=== PATIENT | female | born 1965 | race Caucasian/White ===

== ENCOUNTER → 2020-04-24 09:48 | Outpatient (BNVA) | payer OTHER, SELFPAY | PROVIDERS: PCP Internal Medicine Nephrology; Referring Provider Internal Medicine Nephrology; Visit Provider Licensed Practical Nurse | DX: R29.898 Other symptoms and signs involving the musculoskeletal system (principal); M54.5 Low back pain | CPT/HCPCS: 99204 ==

== ENCOUNTER 2020-05-12 12:35 | Outpatient (CLI) | payer MEDICARE, SELFPAY ==
--- NOTE | 2020-05-12 13:10 | MR_ITS ---
WS: [id number] MRI LUMBAR SPINE NONCONTRAST HISTORY: M54.5 Low back pain COMPARISON: None available. TECHNIQUE: Sagittal and axial multisequence imaging is submitted. Mild thoracolumbar curvature. T9-10 on the LEFT is facet joint arthritis encroaching into the central canal. Normal lumbar alignment with no compression fractures or marrow edema. Very mild disc space narrowing and desiccation at L5-S1. Conus terminates normally at L1-2 disc level. L1-L2: Normal. L2-L3: Very mild ligamentum flavum disease and facet disease. No stenosis. L3-L4: Mild annular disc bulging without stenosis. L4-L5: Mild annular disc bulging with facet and ligamentum flavum hypertrophy. Slightly greater encro achment into the LEFT subarticular recess. Disc abuts the L5 nerve root and there is also mild LEFT f oraminal narrowing. Mild central stenosis. L5-S1: Tiny central disc protrusion. Severe atrophy of each kidney. MR/MR lumbar spine wo con* [id number] IMPRESSION: 1. Mild central and LEFT foraminal stenosis at L4-5. There is disc contacting on the LEFT L5 nerve root and subarticular recess. 2. 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
--- NOTE | 2020-05-12 13:10 | XR_ITS ---
WS: [id number] LATERAL LUMBAR SPINE: 3 view. Lateral radiographs are performed in upright neutral, flexion and extension to the patient's toleranc e. HISTORY: Low back pain COMPARISON: None available. Normal posterior lumbar alignment. Disc spaces and vertebral body heights are maintained. No instabil ity with flexion or extension. XR/XR lumbar spine f/e only [id number] IMPRESSION: No lumbar spine instability.
== END 2020-05-12 12:36 | disposition home or self-care (01) ==
LOC: RADWPI 12:42
PROVIDERS: PCP Internal Medicine Nephrology; Visit Provider Licensed Practical Nurse
DX: M54.5 Low back pain (principal); R53.1 Weakness; M48.061 Spinal stenosis, lumbar region without neurogenic claudication; M47.814 Spondylosis without myelopathy or radiculopathy, thoracic region
CPT/HCPCS: 72120; 72148

== ENCOUNTER → 2020-05-17 08:01 | Outpatient (BNVA) | payer MEDICARE, SELFPAY | PROVIDERS: PCP Internal Medicine Nephrology; Visit Provider Licensed Practical Nurse | DX: M51.26 Other intervertebral disc displacement, lumbar region (principal); M48.061 Spinal stenosis, lumbar region without neurogenic claudication; M51.34 Other intervertebral disc degeneration, thoracic region; R29.898 Other symptoms and signs involving the musculoskeletal system | CPT/HCPCS: 99213 ==

== ENCOUNTER → 2020-08-14 08:01 | Outpatient (BNVA) | payer MEDICARE, SELFPAY | PROVIDERS: PCP Internal Medicine Nephrology; Referring Provider Licensed Practical Nurse; Visit Provider Specialist | DX: R29.898 Other symptoms and signs involving the musculoskeletal system (principal); R20.0 Anesthesia of skin; R20.2 Paresthesia of skin; M51.26 Other intervertebral disc displacement, lumbar region; G62.9 Polyneuropathy, unspecified | CPT/HCPCS: 95909; 99213 ==